=== PATIENT | male | born 1950 | race Caucasian/White ===

== ENCOUNTER 2017-06-07 13:37 | Observation (INO) ==
[2017-06-07 14:29] LABS: Basophils # 0.2 K/mcL (0.0-0.2); Basophils % 1.4 %; Eosinophils # 0.3 K/mcL (0.0-0.6); Eosinophils % 2.9 %; Hematocrit 30.2 % (37.5-50.1); Hemoglobin 9.6 g/dL (12.9-16.9); Immature Granulocytes % 0.3 % (0-4); Lymphocytes # 2.1 K/mcL (0.6-4.6); Lymphocytes % 18.4 %; Mean Corpuscular HGB Conc 31.8 g/dL (31.6-35.5); Mean Corpuscular Hemoglobin 25.6 pg (28.0-33.3); Mean Corpuscular Volume 80.5 fL (83.0-100.0); Mean Platelet Volume 8.6 fL (9.4-12.4); Monocytes # 0.9 K/mcL (0.0-1.3); Monocytes % 7.9 %; Platelet Count 690 K/mcL (140-400); Red Blood Count 3.75 M/mcL (4.19-5.50); Red Cell Distribution Width 13.2 % (11.5-14.5); Segmented Neutrophils % 69.1 %
[2017-06-07 14:34] LABS: INR 1.1; Prothrombin Time 12.2 Seconds (9.4-12.1)
[2017-06-07 14:37] LABS: Activated Partial Thrombo Time 28.7 Seconds (26.0-36.0)
--- NOTE | 2017-06-07 14:38 | Emergency Department Note ---
Disposition Clinical Impression: Renal insufficiency Lung cancer Qualifiers: Laterality: unspecified laterality Lung location: unspecified part of lung Qualified Code(s): C34.90 - Malignant neoplasm of unspecified part of unspecified bronchus or lung Disposition: Admitted As Inpatient Condition: Fair Referrals: NONE,PCP [Non-Partnered Physician] - Forms: ED Satisfaction Letter Time of Disposition: 18:57 Male Urogenital HPI - General Chief complaint: ED Urogenital-Male Stated complaint: blood in urine Time Seen by Provider: 06/07/17 13:53 Source: patient Mode of arrival: ambulatory Limitations: no limitations Nursing Notes Reviewed: Yes Vital Signs Reviewed: Yes - History of Present Illness HPI Narrative: 67-year-old male with a history of lung cancer status post pneumonectomy on the left who had a biopsy of the lesion in his right lung yesterday. He's had hematuria for the last 10 days. He states he was told he had a cyst on his kidney. States he did have a PET scan also. Pt Subjective Complaint: other (Hematuria) Onset (ago): day(s) (10) Duration: constant Severity: moderate Quality: aching Improves with: none Worsens with: none Reports: denies other symptoms - Related Data Home Medications Medication Instructions Recorded Confirmed Albuterol Sulfate [Albuterol 2 puff IH Q4HR PRN 05/31/17 05/31/17 Inhaler] Ascorbic Acid [Vitamin C] 1,000 mg PO DAILY 05/31/17 05/31/17 Aspirin Enteric Coated [Aspirin EC] 81 mg PO DAILY 05/31/17 05/31/17 Baclofen [Lioresal] 10 mg PO BID 05/31/17 05/31/17 Cholecalciferol (Vitamin D3) 1,000 unit PO [id number] 05/31/17 05/31/17 [Vitamin D3] Gabapentin [Neurontin] 600 mg PO TID 05/31/17 05/31/17 Multivitamin [One Daily Essential] 1 tab PO DAILY 05/31/17 05/31/17 Tamsulosin [Flomax] 0.4 mg PO DAILY 05/31/17 05/31/17 Allergies Allergy/AdvReac Type Severity Reaction Status Date / Time No Known Allergies Allergy Verified 05/31/17 10:26 All systems ED: reviewed and negative except as stated. Constitutional: Denies: fever, chills, weakness, weight change Eyes: Denies: eye pain, eye discharge, vision change ENT ED: Denies: ear pain, throat pain, dental pain, hearing loss, epistaxis, congestion, dysphagia Cardiovascular: Denies: chest pain, palpitations, dyspnea on exertion, edema, syncope Respiratory: Denies: cough, dyspnea, wheezes, hemoptysis, stridor Gastrointestinal: Denies: abdominal pain, nausea, vomiting, diarrhea, constipation, hematemesis, melena, hematochezia Genitourinary: Reports: hematuria. Denies: urgency, dysuria, frequency Musculoskeletal: Denies: back pain, neck pain, arthralgia, myalgia Integumentary: Denies: rash, abrasion, lesions Neurological: Denies: headache, weakness, numbness, paresthesias, confusion, abnormal gait, vertigo Psychiatric: Denies: anxiety, depression, suicidal thoughts, homicidal thoughts , auditory hallucinations, visual hallucinations Endocrine: Denies: fatigue Hematological/Lymphatic: Denies: easy bleeding, easy bruising Allergic/Immunologic: Denies: facial swelling, urticaria Past Medical History - Past Medical History Medical history: Reports: cancer, COPD, hyperlipidemia, hypertension Surgical history: Reports: herniorrhaphy Psychiatric history: Reports: no psych history - Social History Smoking Status: Former smoker Smokeless Tobacco Status: No Alcohol use: Reports: none Drug use: Reports: marijuana Physical Exam - General Limitations: no limitations General appearance: alert - Head Head exam: atraumatic, normocephalic, normal inspection - Eye Eye exam: Present: normal appearance - ENT ENT exam: normal exam, normal oropharynx, mucous membranes moist, normal external ear exam - Neck Neck exam: Present: normal inspection, full ROM, trachea midline - Chest Chest inspection: Present: normal inspection, symmetric chest wall rise - Respiratory Respiratory exam: Present: normal lung sounds bilaterally - Cardiovascular Cardiovascular exam: Present: regular rate, normal rhythm, normal heart sounds - Neurological Exam Neurological exam: Present: alert, oriented X3, normal gait - Psychiatric Psychiatric exam: Present: normal affect, normal mood - Skin Skin exam: Present: warm, dry, intact, normal color Course - Reevaluation(s) Reevaluation #1: 67-year-old male with a history of lung cancer and has hematuria and questionable lesions on his kidneys based on PET scan. Worsening renal function. Patient will be admitted for IV hydration. Time: 18:57 Vital Signs Temperature 97.9 F 06/07/17 13:45 Pulse Rate 97 06/07/17 13:45 Respiratory Rate 18 06/07/17 13:45 Blood Pressure 128/83 06/07/17 13:45 O2 Sat by Pulse Oximetry 99 06/07/17 13:45 Temperature 97.9 F 06/07/17 13:45 Pulse Rate 88 06/07/17 17:41 Respiratory Rate 16 06/07/17 17:41 Blood Pressure 168/88 06/07/17 17:41 O2 Sat by Pulse Oximetry 98 06/07/17 17:41 Oxygen Delivery Oxygen Delivery Room Air Urogenital-Male - Lab Data Result diagrams: 06/07/17 14:17 06/07/17 14:17 Lab Results 06/07/17 06/07/17 06/07/17 Range/Units 14:17 14:17 14:17 WBC 11.5 H (4.3-11.1) K/mcL RBC 3.75 L (4.19-5.50) M/mcL Hgb 9.6 L (12.9-16.9) g/dL Hct 30.2 L (37.5-50.1) % MCV 80.5 L (83.0-100.0) fL MCH 25.6 L (28.0-33.3) pg MCHC 31.8 (31.6-35.5) g/dL RDW 13.2 (11.5-14.5) % Plt Count 690 H (140-400) K/mcL MPV 8.6 L (9.4-12.4) fL Immature Gran % 0.3 (0-4) % Seg Neutrophils % 69.1 % Lymphocytes % 18.4 % Monocytes % 7.9 % Eosinophils % 2.9 % Basophils % 1.4 % Neutrophils # 8.0 (1.6-8.9) K/mcL Lymphocytes # 2.1 (0.6-4.6) K/mcL Monocytes # 0.9 (0.0-1.3) K/mcL Eosinophils # 0.3 (0.0-0.6) K/mcL Basophils # 0.2 (0.0-0.2) K/mcL PT 12.2 H (9.4-12.1) Seconds INR 1.1 APTT 28.7 (26.0-36.0) Seconds Sodium 135 L (136-145) mEq/L Potassium 3.4 L (3.5-5.1) mEq/L Chloride 97 L (98-107) mEq/L Carbon Dioxide 30 H (23-29) mEq/L BUN 20 (8-23) mg/dL Creatinine 1.87 H (0.70-1.30) mg/dL Est GFR ( Amer) 44 L (> 60) Est GFR (Non-Af Amer) 36 L (> 60) BUN/Creatinine Ratio 11 (6-26) Glucose 93 (70-105) mg/dL Calculated Osmolality 282 (280-300) Lactic Acid (0.5-2.2) mmol/L Calcium 9.7 (8.6-10.3) mg/dL Total Bilirubin 0.2 L (0.3-1.0) mg/dL Direct Bilirubin 0.0 (0.0-0.2) mg/dL Indirect Bilirubin 0.2 (0.0-1.2) mg/dL AST 14 (13-39) Units/L ALT 8 (7-52) Units/L Alkaline Phosphatase 93 (34-104) Units/L Troponin I (< 0.04) ng/mL Serum Total Protein 7.1 (6.4-8.9) g/dL Albumin 3.7 (3.5-5.7) g/dL Globulin 3.4 (2.4-3.5) g/dL Albumin/Globulin Ratio 1.1 (1.1-2.2) Amylase 55 (29-103) Units/L Lipase 24 (11-82) Units/L Urine Color (Yellow) Urine Clarity (Clear) Urine pH (5.0-8.0) pH Units Ur Specific [place] (1.010-1.025) Urine Protein (Neg-Trace) mg/dL Urine Glucose (UA) (Normal) mg/dL Urine Ketones (Negative) mg/dL Urine Blood (Negative) Urine Nitrite (Negative) Urine Bilirubin (Negative) Urine Urobilinogen (Normal) mg/dL Ur Leukocyte Esterase (Negative) Urine Microscopic RBC (0-3) per hpf Urine Microscopic WBC (0-3) per hpf Ur Squamous Epith Cells (None-Few) per lpf Urine Bacteria (None-Few) per hpf Hyaline Casts (None-Few) per lpf Ur Culture Indicated? (NO) 06/07/17 06/07/17 06/07/17 Range/Units 14:17 14:17 14:40 WBC (4.3-11.1) K/mcL RBC (4.19-5.50) M/mcL Hgb (12.9-16.9) g/dL Hct (37.5-50.1) % MCV (83.0-100.0) fL MCH (28.0-33.3) pg MCHC (31.6-35.5) g/dL RDW (11.5-14.5) % Plt Count (140-400) K/mcL MPV (9.4-12.4) fL Immature Gran % (0-4) % Seg Neutrophils % % Lymphocytes % % Monocytes % % Eosinophils % % Basophils % % Neutrophils # (1.6-8.9) K/mcL Lymphocytes # (0.6-4.6) K/mcL Monocytes # (0.0-1.3) K/mcL Eosinophils # (0.0-0.6) K/mcL Basophils # (0.0-0.2) K/mcL PT (9.4-12.1) Seconds INR APTT (26.0-36.0) Seconds Sodium (136-145) mEq/L Potassium (3.5-5.1) mEq/L Chloride (98-107) mEq/L Carbon Dioxide (23-29) mEq/L BUN (8-23) mg/dL Creatinine (0.70-1.30) mg/dL Est GFR ( Amer) (> 60) Est GFR (Non-Af Amer) (> 60) BUN/Creatinine Ratio (6-26) Glucose (70-105) mg/dL Calculated Osmolality (280-300) Lactic Acid 2.2 (0.5-2.2) mmol/L Calcium (8.6-10.3) mg/dL Total Bilirubin (0.3-1.0) mg/dL Direct Bilirubin (0.0-0.2) mg/dL Indirect Bilirubin (0.0-1.2) mg/dL AST (13-39) Units/L ALT (7-52) Units/L Alkaline Phosphatase (34-104) Units/L Troponin I < 0.03 (< 0.04) ng/mL Serum Total Protein (6.4-8.9) g/dL Albumin (3.5-5.7) g/dL Globulin (2.4-3.5) g/dL Albumin/Globulin Ratio (1.1-2.2) Amylase (29-103) Units/L Lipase (11-82) Units/L Urine Color Yellow (Yellow) Urine Clarity Clear (Clear) Urine pH 6.5 (5.0-8.0) pH Units Ur Specific [place] 1.018 (1.010-1.025) Urine Protein Negative (Neg-Trace) mg/dL Urine Glucose (UA) Normal (Normal) mg/dL Urine Ketones Negative (Negative) mg/dL Urine Blood Large H (Negative) Urine Nitrite Negative (Negative) Urine Bilirubin Negative (Negative) Urine Urobilinogen Normal (Normal) mg/dL Ur Leukocyte Esterase Small H (Negative) Urine Microscopic RBC 30-50 H (0-3) per hpf Urine Microscopic WBC 3-5 H (0-3) per hpf Ur Squamous Epith Cells Moderate H (None-Few) per lpf Urine Bacteria None Seen (None-Few) per hpf Hyaline Casts None Seen (None-Few) per lpf Ur Culture Indicated? YES A (NO) - Radiology Data Radiology results reviewed: Yes I reviewed the patient's radiology results. Abdomen/Pelvis CT 06/07/17 14:08 IMPRESSION: 1. Multiple pulmonary nodules in the right lung evidence of metastatic disease. Continued CT follow-up is recommended. 2. Left hydropneumothorax secondary to previous pneumonectomy. 3. Bilateral renal lesions cannot be characterized on the current noncontrast CT. Previous PET-CT recommended dedicated MRI or CT using a multiphase renal protocol. D/ / Madi Glass MD / Madi Glass MD Interpreting Provider: Madi Glass MD Chest X-Ray 06/07/17 18:11 IMPRESSION: 1. No residual pneumothorax demonstrated 2. No significant change in small focus of right upper lobe airspace disease compatible with a small amount of post biopsy alveolar hemorrhage. No new abnormality demonstrated D/ / Edwin Fung MD / Edwin Fung MD Interpreting Provider: Edwin Fung MD
[2017-06-07 14:49] LABS: Albumin 3.7 g/dL (3.5-5.7); Albumin/Globulin Ratio 1.1 (1.1-2.2); Bilirubin,Indirect 0.2 mg/dL (0.0-1.2); Bilirubin,Total 0.2 mg/dL (0.3-1.0); Calcium 9.7 mg/dL (8.6-10.3); Globulin 3.4 g/dL (2.4-3.5); Potassium 3.4 mEq/L (3.5-5.1); Total Protein 7.1 g/dL (6.4-8.9)
[2017-06-07 14:55] LABS: Bilirubin,Urine Negative (Negative); Blood,Urine Large (Negative); Clarity,Urine Clear (Clear); Color,Urine Yellow (Yellow); Glucose,Urine (UA) Normal (Normal); Ketones,Urine Negative (Negative); Leukocyte Esterase,Urine Small (Negative); Nitrite,Urine Negative (Negative); PH,Urine 6.5 pH Units (5.0-8.0); Protein,Urine Negative (Neg-Trace); Specific Gravity,Urine 1.018 (1.010-1.025); Urobilinogen,Urine Normal (Normal)
[2017-06-07 14:56] LABS: Bacteria,Urine None Seen per hpf (None-Few); Hyaline Casts,Urine None Seen per lpf (None-Few); RBC,Urine 30-50 per hpf (0-3); Squamous Epithelial Cell,Urine Moderate per lpf (None-Few)
[2017-06-07] MEDS ORDERED: *HR* OxyCODONE/APAP 5/325 TABLET PO ONE (18:11)
--- NOTE | 2017-06-07 21:42 | Internal Med History&Physical ---
<Simone Hayes - Last Filed: 06/08/17 00:26> Date of Encounter: 06/08/17 Time of Encounter: 09:00 Assessment and Plan (1) Hematuria Current visit: Yes Status: Acute Secondary to renal mass, suspected RCC See plan of care below Qualifiers: Hematuria type: gross Qualified Code(s): R31.0 - Gross hematuria (2) Renal mass Current visit: Yes Status: Chronic Suspicious for renal cell carcinoma on imaging Awaiting biopsy results to differentiate lung lesions as metastatic lung ca vs metastatic RCC If pathology of lung lesions is not of renal origin, further characterization of renal mass can be done with MRI w/ and w/o contrast or CT w/ and w/o renal protocol GFR at 36 is borderline for allowing contrast use, hopefully with IVF, this will improve. Management per oncology (3) Anemia Current visit: Yes Status: Acute Secondary to blood loss - recent hematuria soon after pneumonectomy 9.6 on admission, last was 10.5 on 05/31 Currently without symptoms, but significant risk of decompensation Will monitor Hgb Continuous pulse oximetry Qualifiers: Anemia type: unspecified type Qualified Code(s): D64.9 - Anemia, unspecified (4) Renal insufficiency Current visit: Yes Status: Acute Cr elevated at 1.87 compared to 1.04 on05/04/17 Gentle IV hydration at 75 mls/hr (5) Lung cancer Current visit: Yes Status: Acute Squamous cell carinoma S/P pneumonectomy has not undergone adjuvant therapy Qualifiers: Laterality: unspecified laterality Lung location: unspecified part of lung Qualified Code(s): C34.90 - Malignant neoplasm of unspecified part of unspecified bronchus or lung (6) S/P pneumonectomy Current visit: Yes Status: Chronic Left sided (7) Benign prostate hyperplasia Current visit: Yes Status: Acute No symptoms currently Qualifiers: Lower urinary tract symptom presence: symptoms absent Qualified Code(s): N40.0 - Benign prostatic hyperplasia without lower urinary tract symptoms (8) COPD (chronic obstructive pulmonary disease) Current visit: Yes Status: Acute Continue home inhaler Qualifiers: COPD type: unspecified COPD Qualified Code(s): J44.9 - Chronic obstructive pulmonary disease, unspecified (9) DVT prophylaxis Current visit: Yes Status: Acute Will avoid pharmacologic prophylaxis while actively bleeding SCDs placed Internal Medicine - H&P: HPI Chief complaint: Hematuria, Hemoptysis Admitted From: Home Plans for Post Hospital Care: Home History of present illness: Mr. Robles is a 67 year old male who presented with approximately 10 days of worsening hematuria. He states that it had started as a slight pink tinge and progressed to mario clots. He described them as "like a worm." He says that it was at it worst yesterday and had slightly improved today. He does complain of dysuria, which he attributes to having to manually remove clots. Other symptoms include right sided chest pain at the site of CT guided lung biopsy and some shortness of breath following his pneumonectomy. He denies nausea and vomiting. Patient has history of alcohol abuse, though states that he stopped drinking heavily in 2009. Admits to 50-100 pack years of smoking history, having started at age 16, stopping at 66, and smoking 1-2 PPD. The patient has a recent diagnosis of lung cancer, with workup that started after presenting to the [facility] with hemoptysis. He was treated with steroids and antibiotics. The hemoptysis recurred. 03/22/17 CTA chest at [facility]: 3.1 x 2.8 x 2.9 cm left-sided mass without adenopathy, single noncalcified nodule on right. 03/22/17 Bronchoscopy at [facility]: Obstructed mainstem bronchus. Biopsy showed moderately differentiated squamous cell carcinoma. 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 Porter. 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 Margins suspected to be negative. Lymph nodes negative for metastasis x17. 05/24/17 CT abd/pelv w/o at [facility]: >10 noncalcified pulmonary nodules in the right lung base consistent with metastasis; mass with poorly defined margins measuring at least 6 x 6 x 6 cm in the right kidney "that should be considered renal cell carcinoma until proven otherwise." 05/31/17: Patient seen [facility] by Dr. Truong. Complaining of flank pain and hematuria, as well as post-operative discomfort. Mario hematuria had remitted by this visit, but blood was detected on UA. 06/02/17 PET/CT: Increased size and number of hypermetabolic nodules in right lung ; Hypermetabolic focus along anterior margin of R main pulmonary artery possibly met vs metastatic lymph node; L posterior chest wall uptake suspicious for met; Hypodense lesions in both kidneys new or enlarged from 2017 demonstrate attenuation higher than simple cyst; Renal CT or MRI recommended. 06/06/17: CT guided core biopsy of right upper lobe peripheral pulmonary nodule by Dr. Martinez. Pathology pending. Past Med Surg Social Fam HX - Past Medical History Medical history: cancer, COPD, hyperlipidemia, hypertension Psychiatric history: no psych history - Past Surgical History Surgical History: herniorrhaphy - Social History Smoking Status: Former smoker Smokeless Tobacco Status: No Alcohol use: none Drug use: marijuana Internal Medicine - H&P: Meds Albuterol Sulfate [Albuterol Inhaler] 2 puff IH Q6H PRN 05/31/17 [History] Aspirin Enteric Coated [Aspirin EC] 81 mg PO DAILY 05/31/17 [History] Baclofen [Lioresal] 10 mg PO TID PRN 05/31/17 [History] Cholecalciferol (Vitamin D3) [Vitamin D3] 1,000 unit PO BID 05/31/17 [History] Gabapentin [Neurontin] 1,200 mg PO TID 05/31/17 [History] Multivitamin [One Daily Essential] 1 tab PO DAILY 05/31/17 [History] Tamsulosin [Flomax] 0.4 mg PO HS 05/31/17 [History] Calcium Carbonate/Vitamin D3 [Calcium 500-Vit D3 200 Tablet] 1 each PO DAILY 10/17 [History] Fluticasone Propionate Nasal [Flonase] 100 mcg NS DAILY 06/07/17 [History] Phenyleph/Chlorphen/Apap 1 tab PO AD PRN 06/07/17 [History] Varenicline Tartrate [Chantix] 1 mg PO BID 06/07/17 [History] 3 Allergy/AdvReac Type Severity Reaction Status Date / Time No Known Allergies Allergy Verified 05/31/17 10:26 All Systems PM: As per HPI - Constitutional Vitals: Temp Pulse Resp BP Pulse Ox 98.5 F 90 15 165/85 96 06/07/17 21:30 06/07/17 21:30 06/07/17 21:30 06/07/17 21:30 06/07/17 21:30 General appearance: Present: cooperative, A&O X 3, pleasant, no acute distress, answers questions appropriately - Head Head exam: Present: atraumatic, normal inspection, normocephalic - ENT ENT exam: Present: mucous membranes moist - Neck Neck exam general surgery: Present: trachea midline - Respiratory Respiratory exam: Absent: accessory muscle use, respiratory distress Additional comments: Absent breath sounds on the left Rare wheezes on right - Cardiovascular Cardiovascular exam: Present: RRR, +S1, +S2 - GI/Abdominal GI/Abdominal exam: Present: soft, no peritoneal signs Additional comments: Right sided tenderness and fullness - Extremities Exam Extremities exam: Present: radial pulses palpable and symmetrical. Absent: pedal edema - Psychiatric Psychiatric exam: Present: normal affect, normal mood. Absent: agitated, anxious - Skin Skin exam: Present: dry, warm Internal Med - H&P Results - Labs CBC & Chem 7: 06/07/17 14:17 06/07/17 14:17 <Apolinar Dodge - Last Filed: 06/08/17 01:03> Date of Encounter: 06/08/17 Internal Medicine - H&P: HPI History of present illness: Mr. Robles is a 67 year old male All Systems PM: A 10-system review of systems was performed and is negative for pertinent findings except as documented above in the HPI. - Constitutional Vitals: Temp Pulse Resp BP Pulse Ox 98.6 F 86 14 157/83 96 06/07/17 23:04 06/07/17 23:04 06/07/17 23:04 06/07/17 23:04 06/07/17 23:04 Internal Med - H&P Results - Labs CBC & Chem 7: 06/07/17 14:17 06/07/17 14:17 - Attending Attestation I have seen and examined this pt independently, I have discussed with resident physician Dr Hayes regarding the management plan. Agree with the documentation.
[2017-06-07] MEDS ORDERED: Acetaminophen 325 MG TABLET PO PRN (22:41)
[2017-06-07] MEDS ORDERED: Naloxone 0.4 MG/ML INJ IVP PRN (22:41)
[2017-06-08] MEDS: 0.9 % Sodium Chloride 1,000 ML IVC SCH ×2 (00:06→15:19)
[2017-06-08] MEDS: *HR* OxyCODONE Immed Rel 5 MG TABLET PO PRN ×4 (00:07→17:34)
[2017-06-08] MEDS ORDERED: Ondansetron 4 MG/2 ML VIAL IVP PRN (04:46)
[2017-06-08 06:27] LABS: Hematocrit 31.2 % (37.5-50.1); Hemoglobin 9.8 g/dL (12.9-16.9); Mean Corpuscular HGB Conc 31.4 g/dL (31.6-35.5); Mean Corpuscular Hemoglobin 25.5 pg (28.0-33.3); Mean Corpuscular Volume 81.3 fL (83.0-100.0); Platelet Count 723 K/mcL (140-400); Red Blood Count 3.84 M/mcL (4.19-5.50); Red Cell Distribution Width 13.3 % (11.5-14.5)
[2017-06-08 06:46] LABS: Albumin 3.5 g/dL (3.5-5.7); Bilirubin,Total 0.3 mg/dL (0.3-1.0); Calcium 9.3 mg/dL (8.6-10.3); Globulin 3.5 g/dL (2.4-3.5)
[2017-06-08] MEDS: Fluticasone Propionate Nasal 50 MCG/SPRAY BOTTLE NS SCH (08:41)
[2017-06-08] MEDS ORDERED: Aspirin Enteric Coated 81 MG Tablet PO SCH (09:00)
[2017-06-08] MEDS ORDERED: Gabapentin 400 MG CAPSULE PO SCH (09:00)
--- NOTE | 2017-06-08 11:46 | Internal Med Progress Note ---
Date of Encounter: 06/08/17 Time of Encounter: 11:42 - Assessment and plan (1) Acute kidney injury Current Visit: Yes Status: Acute Assessment and plan: possibly obstructive due to renal mass, BPH, hematuria Urine is clear at this time renal function i improving with IVF Renal USS noted for eterogenous lesions bilaterally, mild bladder wall thickening possibly due to chronic HAEZL No stones Strict I/Os Avoid nephrotoxins (2) Anemia Current Visit: Yes Status: Chronic Assessment and plan: Chronic, HB on arrival 9.6, 9.8 this am, baseline around 10 Continue to monitor Qualifiers: Anemia type: unspecified type Qualified Code(s): D64.9 - Anemia, unspecified (3) Benign prostate hyperplasia Current Visit: Yes Status: Chronic Assessment and plan: continue home medications. Qualifiers: Lower urinary tract symptom presence: symptoms absent Qualified Code(s): N40.0 - Benign prostatic hyperplasia without lower urinary tract symptoms (4) COPD (chronic obstructive pulmonary disease) Current Visit: Yes Status: Chronic Assessment and plan: no signs of exacerbation at this time. Continue home medications. Qualifiers: COPD type: unspecified COPD Qualified Code(s): J44.9 - Chronic obstructive pulmonary disease, unspecified (5) Hematuria Current Visit: Yes Status: Acute Assessment and plan: intermittent. Unwitnessed in this visit. Possibly secondary to renal cell carcinoma. Oncology evaluation is pending. Qualifiers: Hematuria type: unspecified type Qualified Code(s): R31.9 - Hematuria, unspecified (6) Lung cancer Current Visit: Yes Status: Chronic Assessment and plan: Squamous cell carinoma S/P pneumonectomy has not undergone adjuvant therapy Qualifiers: Laterality: unspecified laterality Lung location: unspecified part of lung Qualified Code(s): C34.90 - Malignant neoplasm of unspecified part of unspecified bronchus or lung (7) Renal mass Current Visit: Yes Status: Chronic Assessment and plan: Suspicious for renal cell carcinoma on imaging Awaiting biopsy results to differentiate lung lesions as metastatic lung ca vs metastatic RCC renal ultrasound noted. Management per oncology. (8) S/P pneumonectomy Current Visit: Yes Status: Chronic Assessment and plan: stable. (9) DVT prophylaxis Current Visit: Yes Status: Acute Assessment and plan: status post patient on heparin subcutaneous. No current evidence of hematuria. 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, hematuria, He has a PMH of LUng CA , renal cancer (being worked up as mets from lung, or primary), Chronic anemia At my time of evaluation, i see urine in his urinal that is clear, patient states "hematuria comes and goes" No new complains Awaiting oncology eval - Constitutional Vitals: Temp Pulse Resp BP Pulse Ox 98.7 F 95 20 155/82 95 06/08/17 11:37 06/08/17 11:37 06/08/17 11:37 06/08/17 11:37 06/08/17 11:37 General appearance: Present: cachectic, cooperative, A&O X 3, pleasant, no acute distress, answers questions appropriately - Head Head exam: Present: atraumatic, normocephalic - Eye Eye exam: Present: PERRL, conjuntiva pink, sclera anicteric Pupils: Present: PERRL - Neck Neck exam general surgery: Present: supple, trachea midline. Absent: lymphadenopathy - Respiratory Additional comments: diminished breath sounds on the L lung base, other zones CTA - Cardiovascular Cardiovascular exam: Present: RRR, +S1, +S2. Absent: diastolic murmur, gallop, rubs, systolic murmur - GI/Abdominal GI/Abdominal exam: Present: normal bowel sounds, soft, no peritoneal signs. Absent: distended, tenderness - Extremities Exam Extremities exam: Present: warm, radial pulses palpable and symmetrical. Absent : calf tenderness, cyanotic, pedal edema - Neurological Exam Neurological exam: Present: alert, CN II-XII intact, oriented X3, no focal deficits. Absent: pronater drift, facial droop, speech deficit - Skin Skin exam: Present: dry, intact Internal Medicine: Result - Labs CBC & Chem 7: 06/08/17 06:01 06/08/17 06:01 Labs: Short CBC 06/08/17 Range/Units 06:01 WBC 16.0 H (4.3-11.1) K/mcL Hgb 9.8 L (12.9-16.9) g/dL Hct 31.2 L (37.5-50.1) % Plt Count 723 H (140-400) K/mcL BMP 06/08/17 06:01 Sodium 133 L Potassium 4.0 Chloride 99 Carbon Dioxide 25 BUN 17 Creatinine 1.45 H Glucose 103 Calcium 9.3 Liver Function 06/08/17 Range/Units 06:01 Total Bilirubin 0.3 (0.3-1.0) mg/dL AST 13 (13-39) Units/L ALT 8 (7-52) Units/L Alkaline Phosphatase 88 (34-104) Units/L Albumin 3.5 (3.5-5.7) g/dL - ABG Interpretation ABG results: PT/INR, D-dimer PT 12.2 Seconds (9.4-12.1) H 06/07/17 14:17 Consult Discharge Plan - Plan Referrals: [facility] [Outside]
--- NOTE | 2017-06-08 13:00 | Oncology Inp Consult Note ---
<Parminder Truong - Last Filed: 06/08/17 18:07> Date of Encounter: 06/08/17 - Data of Consult Requesting Physician: Jose Eduardo Luo MD [facility] Provider[facility] - Consult Narrative History of present illness: Mr. Robles is a 67 year old male Medications and Allergies Albuterol Sulfate [Albuterol Inhaler] 2 puff IH Q6H PRN 05/31/17 [History] Aspirin Enteric Coated [Aspirin EC] 81 mg PO DAILY 05/31/17 [History] Baclofen [Lioresal] 10 mg PO TID PRN 05/31/17 [History] Cholecalciferol (Vitamin D3) [Vitamin D3] 1,000 unit PO BID 05/31/17 [History] Gabapentin [Neurontin] 1,200 mg PO TID 05/31/17 [History] Multivitamin [One Daily Essential] 1 tab PO DAILY 05/31/17 [History] Tamsulosin [Flomax] 0.4 mg PO HS 05/31/17 [History] Calcium Carbonate/Vitamin D3 [Calcium 500-Vit D3 200 Tablet] 1 each PO DAILY 10/17 [History] Fluticasone Propionate Nasal [Flonase] 100 mcg NS DAILY 06/07/17 [History] Phenyleph/Chlorphen/Apap 1 tab PO AD PRN 06/07/17 [History] Varenicline Tartrate [Chantix] 1 mg PO BID 06/07/17 [History] 3 Allergy/AdvReac Type Severity Reaction Status Date / Time No Known Allergies Allergy Verified 05/31/17 10:26 Oncology - Exam - Constitutional Vitals: Temp Pulse Resp BP Pulse Ox 98.5 F 94 18 155/83 95 06/08/17 17:16 06/08/17 17:16 06/08/17 17:16 06/08/17 17:16 06/08/17 17:16 Oncology - Results Labs: Short CBC 06/08/17 Range/Units 06:01 WBC 16.0 H (4.3-11.1) K/mcL Hgb 9.8 L (12.9-16.9) g/dL Hct 31.2 L (37.5-50.1) % Plt Count 723 H (140-400) K/mcL BMP 06/08/17 06:01 Sodium 133 L Potassium 4.0 Chloride 99 Carbon Dioxide 25 BUN 17 Creatinine 1.45 H Glucose 103 Calcium 9.3 Liver Function 06/08/17 Range/Units 06:01 Total Bilirubin 0.3 (0.3-1.0) mg/dL AST 13 (13-39) Units/L ALT 8 (7-52) Units/L Alkaline Phosphatase 88 (34-104) Units/L Albumin 3.5 (3.5-5.7) g/dL Consult Discharge Plan - Plan Referrals: [facility] [Outside] - 06/16/17 3:00 pm Parminder Truong MD [Partnered Physician] - 06/10/17 11:45 am (Treatment will be after the appt. Thank you) - Attending Attestation I have seen and examined her, and agree with Ms. chacon's assessment. 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 He is status post left pneumonectomy in April and in the 6 weeks post op has developed extensive right-sided lung metastases as well as bilateral renal metastases from his lung cancer. Outside of an isolated 5mm right lung nodule and a 1 cm indeterminate right renal lesion, these were absent on preoperative CT and PET/CT imaging He contacted our office with gross hematuria and clot hematuria on Tuesday. I touched base with our urology team who recommended an ER visit and consideration of catheter placement with irrigation if his hematuria persisted. I am happy to report his hematuria has resolved and not recurred during his hospital stay. I did inform Mr. Robles of his biopsy results today. I also informed him of the grave situation we are in given the aggressive nature of his cancer. If possible, I would like him discharged if deemed stable tomorrow so I can initiate chemotherapy on Tuesday. We discussed using carboplatin with Abraxane for his squamous cell carcinoma. We discussed this therapy in generalities and we will discuss this in more detail prior to initiation of therapy. I asked him to bring family with him to his next visit as well. Patient does wish to be DNR which I wholeheartedly agree with. If you have any concerns or questions, do not hesitate to call my cell phone at [phone] <Sylwia Chacon L - Last Filed: 06/09/17 12:31> Date of Encounter: 06/08/17 Time of Encounter: 12:30 Assessment and Plan (1) Lung cancer Status: Chronic Assessment and plan: Given recent work up findings as described in detail in HPI, Mr. Robles has a very unfortunate case of highly aggressive metastatic squamous cell carcinoma of the lung. Since his pneumonectomy he has developed extensive right-sided lung metastases as well as bilateral renal metastases from his lung cancer. He was sent to ER for further evaluation of gross hematuria with clots. Dr. Truong has been in contact with our urology team who will continue to follow patient on an outpatient basis. His hematuria has since resolved during his hospital stay. Dr. Truong did have a conversation with Mr. Robles today informing him of his biopsy results and the grave situation given the aggressiveness of his lung cancer. He stressed the need to start chemotherapy treatment very soon, planned treatment to be carboplatin and abraxane. The general idea of chemotherapy, what to expect and common side effects were introduced at this visit, however, given the lengthy discussion regarding the patients disease progression, chemotherapy treatment details will be further explained at upcoming follow up appointment this week. It patient is stable enough for discharge tomorrow per hospitalist team, he will then follow up with Dr. Truong Tuesday morning and start chemotherapy this day. Patient lives with his brother and is fairly independent. He was asked to bring family support with him at his upcoming appointment. I spoke with Dr. Luo regarding plan as outlined above, she is planning to discharge patient tomorrow if he is medically stable and MARS is stable or improving. Please refer to Dr. Truong's attestation below for further details. Qualifiers: Laterality: unspecified laterality Lung location: unspecified part of lung Qualified Code(s): C34.90 - Malignant neoplasm of unspecified part of unspecified bronchus or lung - Data of Consult Patient: known to practice within the last 3 years Consult date: 06/08/17 Requesting Physician: Jose Eduardo Luo MD [facility] Provider[facility] - Consult Narrative Reason for consult: Left lung squamous carcinoma, renal mass History of present illness: Mr. 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 The tumor was located in the left mainstem bronchus. He is status post left muscle-sparing thoracotomy with pneumonectomy and lymphadenectomy 04/2017. Per the pathology report, there may be a positive soft tissue margin at the mainstem bronchus although per patient recall, this margin is felt to be negative. He also has a rapidly enlarging right renal mass. This lesion measured 1.3 cm 03/23/2017 and now measures [address] 05/24/2017. He is having right flank pain and hematuria. He has multiple new pulmonary nodules in the right lung measuring up to 14 mm by imaging 05/24/2017. He was originally planned to discuss adjuvant strategies following his resected lung cancer when meeting Dr. Truong on 05/31/2017, however, in light of the CT images as described, he was sent for further workup for concern of another metastatic process thus putting discussion for his adjuvant treatment on hold. He underwent PET/CT on 06/02/2017 that shows increase in number and size of hypermetabolic nodules throughout the right lung consistent with progression of metastatic disease. A hypermetabolic focus on the anterior margin of the right main pulmonary artery which could represent additional pulmonary metastasis or metastatic lymph node, focal intense uptake along the left posterior chest wall between the sixth and seventh ribs suspicious for metastatic disease, hypodense lesions in both kidneys are new or have enlarged and demonstrate attenuation slightly higher than simple cysts. He then underwent CT-guided core needle biopsy of the right lung on 06/06/2017. Surgical path shows moderately differentiated squamous cell carcinoma. CT Abd/Pelvis on 06/07/17 shows again multiple pulmonary nodules in the right lung evidence of metastatic and now bilateral renal lesions which cannot be characterized on the current noncontrast scan. Mr. Robles presented to the ER on 06/07/2017 with complaints of worsening hematuria. He has had intermittent hematuria over the past couple of weeks however this weekend he began urinating mario, dark red urine with quite significant clots. He was admitted with hematuria, renal insufficiency, renal mass and anemia. Past Med Surg Social Fam HX - Past Medical History Medical history: cancer, COPD, hyperlipidemia, hypertension Psychiatric history: no psych history - Past Surgical History Surgical History: herniorrhaphy - Social History Smoking Status: Former smoker Smokeless Tobacco Status: No Alcohol use: none Drug use: marijuana - Family History Mother Living Status: Still Living Father Living Status: Age at : 71 Cause of : lung cancer Constitutional: Present: fatigue, weakness, weight loss. Absent: fever(s) Additional comments: decreased appetite, resultant weight loss of about 10 pounds over past month Eyes: Absent: blurry vision Cardiovascular: Absent: chest pain, irregular heart rhythm, palpitations Respiratory: Present: hemoptysis, dyspnea on exertion Additional comments: reports hemoptysis that occurred once yesterday and once last week, described as mucous with dark red bloody streaks Gastrointestinal: Absent: hematemesis, hematochezia, melena, nausea, vomiting Additional comments: He reports mid lower abdominal pain in area of bladder Genitourinary: as per HPI Additional comments: reports hematuria per HPI, denies dysuria, urinary frequency or urgency. Musculoskeletal: Absent: arthralgias Integumentary: Absent: wounds Neurological: Absent: focal weakness, headache(s), loss of vision, numbness, syncope, tingling Psychiatric: Present: change in appetite Hematologic/Lymphatic: Present: as per HPI. Absent: lymphadenopathy Oncology - Exam - Constitutional Vitals: Temp Pulse Resp BP Pulse Ox 98.7 F 95 20 155/82 95 06/08/17 11:37 06/08/17 11:37 06/08/17 11:37 06/08/17 11:37 06/08/17 11:37 General appearance: cooperative, no acute distress, thin, no febrile Exam: chronically ill, thin appearing - Head Head exam: Present: atraumatic - ENT ENT exam: Present: mucous membranes moist - Respiratory Additional comments: Left LS Diminished, R LS CTA - Cardiovascular Cardiovascular exam: Present: RRR, +S1, +S2 - GI/Abdominal GI/Abdominal exam: Present: normal bowel sounds, soft. Absent: tenderness - Extremities Exam Extremities exam: Present: normal inspection. Absent: calf tenderness - Back Exam Additional comments: right flank pain/tenderness - Neurological Exam Neurological exam: Present: alert, oriented X3, no focal deficits, strengths equal and symetr throughout - Psychiatric Psychiatric exam: Present: normal affect, normal mood - Skin Skin exam: Present: normal color, warm Oncology - Results Labs: Short CBC 06/08/17 Range/Units 06:01 WBC 16.0 H (4.3-11.1) K/mcL Hgb 9.8 L (12.9-16.9) g/dL Hct 31.2 L (37.5-50.1) % Plt Count 723 H (140-400) K/mcL BMP 06/08/17 06:01 Sodium 133 L Potassium 4.0 Chloride 99 Carbon Dioxide 25 BUN 17 Creatinine 1.45 H Glucose 103 Calcium 9.3 Liver Function 06/08/17 Range/Units 06:01 Total Bilirubin 0.3 (0.3-1.0) mg/dL AST 13 (13-39) Units/L ALT 8 (7-52) Units/L Alkaline Phosphatase 88 (34-104) Units/L Albumin 3.5 (3.5-5.7) g/dL
[2017-06-08] MEDS: Gabapentin 400 MG CAPSULE PO SCH ×2 (15:21→19:49)
[2017-06-09] MEDS: *HR* OxyCODONE Immed Rel 5 MG TABLET PO PRN ×2 (04:04→10:36)
[2017-06-09 08:30] LABS: Basophils # 0.2 K/mcL (0.0-0.2); Basophils % 1.1 %; Eosinophils # 0.4 K/mcL (0.0-0.6); Eosinophils % 2.4 %; Hematocrit 32.9 % (37.5-50.1); Hemoglobin 10.3 g/dL (12.9-16.9); Immature Granulocytes % 0.3 % (0-4); Lymphocytes # 2.5 K/mcL (0.6-4.6); Mean Corpuscular HGB Conc 31.3 g/dL (31.6-35.5); Mean Corpuscular Hemoglobin 25.8 pg (28.0-33.3); Mean Corpuscular Volume 82.3 fL (83.0-100.0); Mean Platelet Volume 8.9 fL (9.4-12.4); Monocytes # 1.3 K/mcL (0.0-1.3); Monocytes % 8.2 %; Neutrophils # 11.1 K/mcL (1.6-8.9); Platelet Count 756 K/mcL (140-400); Red Cell Distribution Width 13.4 % (11.5-14.5)
[2017-06-09 08:45] LABS: BUN/Creatinine Ratio 12 (6-26); Blood Urea Nitrogen 16 mg/dL (8-23); Calcium 9.4 mg/dL (8.6-10.3); Carbon Dioxide 26 mEq/L (23-29); Chloride 98 mEq/L (98-107); Glucose 117 mg/dL (70-105); Osmolality,Calculated 274 (280-300); Potassium 4.2 mEq/L (3.5-5.1); Sodium 131 mEq/L (136-145); eGFR For African Americans > 60 (> 60); eGFR For Non-African Americans 52 (> 60)
--- NOTE | 2017-06-09 09:32 | Discharge Summary ---
<Lulú Contreras - Last Filed: 06/09/17 13:07> Date of Encounter: 06/09/17 Time of Encounter: 09:20 - Discharge Diagnosis (1) Acute kidney injury Priority: Primary Status: Acute (2) S/P pneumonectomy Priority: Secondary Status: Chronic (3) Anemia Priority: Secondary Status: Chronic Qualifiers: Anemia type: unspecified type Qualified Code(s): D64.9 - Anemia, unspecified (4) Hematuria Priority: Secondary Status: Acute Qualifiers: Hematuria type: unspecified type Qualified Code(s): R31.9 - Hematuria, unspecified (5) Lung cancer Priority: Secondary Status: Chronic Qualifiers: Laterality: unspecified laterality Lung location: unspecified part of lung Qualified Code(s): C34.90 - Malignant neoplasm of unspecified part of unspecified bronchus or lung (6) Renal mass Priority: Secondary Status: Chronic (7) Benign prostate hyperplasia Priority: Secondary Status: Chronic Qualifiers: Lower urinary tract symptom presence: symptoms absent Qualified Code(s): N40.0 - Benign prostatic hyperplasia without lower urinary tract symptoms (8) COPD (chronic obstructive pulmonary disease) Priority: Secondary Status: Chronic Qualifiers: COPD type: unspecified COPD Qualified Code(s): J44.9 - Chronic obstructive pulmonary disease, unspecified (9) DVT prophylaxis Priority: Secondary Status: Acute - Discharge Medications Prescriptions: OxyCODONE/APAP 5/325 [Percocet 5/325 MG] 1 each PO Q6HR PRN 5 Days #20 tablet PRN Reason: Pain Home Medications: Albuterol Sulfate [Albuterol Inhaler] 2 puff IH Q6H PRN 05/31/17 [History] Aspirin Enteric Coated [Aspirin EC] 81 mg PO DAILY 05/31/17 [History] Baclofen [Lioresal] 10 mg PO TID PRN 05/31/17 [History] Cholecalciferol (Vitamin D3) [Vitamin D3] 1,000 unit PO BID 05/31/17 [History] Gabapentin [Neurontin] 1,200 mg PO TID 05/31/17 [History] Multivitamin [One Daily Essential] 1 tab PO DAILY 05/31/17 [History] Tamsulosin [Flomax] 0.4 mg PO HS 05/31/17 [History] Calcium Carbonate/Vitamin D3 [Calcium 500-Vit D3 200 Tablet] 1 each PO DAILY 10/17 [History] Fluticasone Propionate Nasal [Flonase] 100 mcg NS DAILY 06/07/17 [History] Phenyleph/Chlorphen/Apap 1 tab PO AD PRN 06/07/17 [History] Varenicline Tartrate [Chantix] 1 mg PO BID 06/07/17 [History] OxyCODONE/APAP 5/325 [Percocet 5/325 MG] 1 each PO Q6HR PRN 5 Days #20 tablet [Rx] Allergies/Adverse Reactions: 3 Allergy/AdvReac Type Severity Reaction Status Date / Time No Known Allergies Allergy Verified 05/31/17 10:26 Procedures/tests Complete & Pending: Procedures Performed prior 72 hours Category Date Time Status Retroperitoneal Ultrasound - Complete [US Exams 06/08/17 10:30 Completed retroperitoneal comp] [US] Routine Date of admission: 06/07/17 19:18 Primary care physician: [facility]CP [facility] Discharging clinician: Jose Eduardo Luo Anticipated date of discharge: 06/09/17 - Patient Status Disposition: Home, Self-Care Condition: Fair Functional capacity at discharge: independent ambulation Overall status at discharge: patient is back to baseline - Discharge Instructions Follow Up With: [facility] [Outside] - 06/16/17 3:00 pm Parminder Truong MD [Partnered Physician] - 06/10/17 11:45 am (Treatment will be after the appt. Thank you) Additional Instructions: Goes here by appointment tomorrow with oncology for chemotherapy. Return the hospital should you develop fever, chills, increase in urinary blood clots. - Diet and Activity Activity: resume usual activities as tolerated Diet: advance to your usual diet Hospital course: Mr. Robles is a 67 year old male who presented with approximately 10 days of worsening hematuria. He states that it had started as a slight pink tinge and progressed to shane clots. He described them as "like a worm." He says that it was at it worst yesterday and had slightly improved today. He does complain of dysuria, which he attributes to having to manually remove clots. Other symptoms include right sided chest pain at the site of CT guided lung biopsy and some shortness of breath following his pneumonectomy. He denies nausea and vomiting. Patient has history of alcohol abuse, though states that he stopped drinking heavily in 2009. Admits to 50-100 pack years of smoking history, having started at age 16, stopping at 66, and smoking 1-2 PPD. The patient has a recent diagnosis of lung cancer, with workup that started after presenting to the [facility] with hemoptysis. He was treated with steroids and antibiotics. The hemoptysis recurred. 03/22/17 CTA chest at [facility]: 3.1 x 2.8 x 2.9 cm left-sided mass without adenopathy, single noncalcified nodule on right. 03/22/17 Bronchoscopy at [facility]: Obstructed mainstem bronchus. Biopsy showed moderately differentiated squamous cell carcinoma. 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 Porter. 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 Margins suspected to be negative. Lymph nodes negative for metastasis x17. 05/24/17 CT abd/pelv w/o at [facility]: >10 noncalcified pulmonary nodules in the right lung base consistent with metastasis; mass with poorly defined margins measuring at least 6 x 6 x 6 cm in the right kidney "that should be considered renal cell carcinoma until proven otherwise." 05/31/17: Patient [facility] by Dr. Truong. Complaining of flank pain and hematuria, as well as post-operative discomfort. Shane hematuria had remitted by this visit, but blood was detected on UA. 06/02/17 PET/CT: Increased size and number of hypermetabolic nodules in right lung ; Hypermetabolic focus along anterior margin of R main pulmonary artery possibly met vs metastatic lymph node; L posterior chest wall uptake suspicious for met; Hypodense lesions in both kidneys new or enlarged from 2017 demonstrate attenuation higher than simple cyst; Renal CT or MRI recommended. 06/06/17: CT guided core biopsy of right upper lobe peripheral pulmonary nodule by Dr. Martinez. Pathology pending. Upon his admission oncology had been consulted and had seen the patient. Their recommendations were to stabilize the patient and then once stabilized discharge so that the patient on Tuesday could begin chemotherapy. The patient reported that hematuria had improved during the stay however upon admission he had a little hematuria but no blood clots. He stated that he normally does have hematuria every few days and this was his baseline. His MARS continued to improve. Hemoglobin remains stable. The patient denied fever, chills, abdominal pain, blood clots and urine. It was instructed to go to his appointment tomorrow with oncology for chemotherapy. He was alert and oriented times 3 with full capacity stated clear understanding of the treatment plan. - Time Spent with Patient Total time spent providing and/or coordinating discharge services: Greater than 30 minutes - Constitutional Vitals: Temp Pulse Resp BP Pulse Ox 98.4 F 100 20 145/81 97 06/09/17 08:52 06/09/17 08:52 06/09/17 08:52 06/09/17 08:52 06/09/17 08:52 General appearance: Present: cachectic, cooperative, A&O X 3, pleasant, no acute distress, answers questions appropriately Exam: Gen.: Vitals noted. No acute distress. AAOx3 HEENT: oropharynx clear, Normocephalic, atraumatic Cardiac: RRR, no murmur, +S1/S2 Pulmonary: decreased breath sounds in left lower lobe, no wheezes, rales or rhonchi, equal chest expansion Abdomen: soft, nontender, Bowel sounds noted, no guarding MSK: , no joint swelling noted Extremities: no BLE edema, nontender calf, no cyanosis or clubbing Neuro: A&Ox3, moves all extremities, no focal deficits Psych: Appropriate mood and behavior <Jose Eduardo Luo - Last Filed: 06/09/17 15:39> Date of Encounter: 06/09/17 - Discharge Diagnosis (1) Acute kidney injury Status: Acute (2) Anemia Status: Chronic Qualifiers: Anemia type: unspecified type Qualified Code(s): D64.9 - Anemia, unspecified (3) Benign prostate hyperplasia Status: Chronic Qualifiers: Lower urinary tract symptom presence: symptoms absent Qualified Code(s): N40.0 - Benign prostatic hyperplasia without lower urinary tract symptoms (4) COPD (chronic obstructive pulmonary disease) Status: Chronic Qualifiers: COPD type: unspecified COPD Qualified Code(s): J44.9 - Chronic obstructive pulmonary disease, unspecified (5) Hematuria Status: Acute Qualifiers: Hematuria type: unspecified type Qualified Code(s): R31.9 - Hematuria, unspecified (6) Lung cancer Status: Chronic Qualifiers: Laterality: unspecified laterality Lung location: unspecified part of lung Qualified Code(s): C34.90 - Malignant neoplasm of unspecified part of unspecified bronchus or lung (7) Renal mass Status: Chronic (8) S/P pneumonectomy Status: Chronic (9) DVT prophylaxis Status: Acute Procedures/tests Complete & Pending: Procedures Performed prior 72 hours Category Date Time Status Retroperitoneal Ultrasound - Complete [US Exams 06/08/17 10:30 Completed retroperitoneal comp] [US] Routine Date of admission: 06/07/17 19:18 Primary care physician: PCP [facility] Hospital course: Mr. Robles is a 67 year old male - Time Spent with Patient Total time spent providing and/or coordinating discharge services: - Constitutional Vitals: Temp Pulse Resp BP Pulse Ox 99.2 F 93 20 159/85 96 06/09/17 11:16 06/09/17 11:16 06/09/17 11:16 06/09/17 11:16 06/09/17 11:16 - Attending Attestation I examined this patient and my medical decision-making was reviewed with the Resident Physician. I agree with the documented findings, disposition and treatment plan as described except to the extent set forth below. Seen and examined at bedside Hematuria is intermittent, due to renal cell carcinoma, MARS has resolved. Stable to be discharged home to follow with oncology Rest of details as in the resident physician's documentation
[2017-06-09] MEDS: Gabapentin 400 MG CAPSULE PO SCH (09:49)
[2017-06-09] MEDS: Fluticasone Propionate Nasal 50 MCG/SPRAY BOTTLE NS SCH (09:49)
[2017-06-09 11:17] VITALS: BP 159/85
--- NOTE | 2017-06-09 13:17 | Physician Discharge Referral ---
Home Health/Hosp Referral Info Transfer to: Home Health Provider in Charge Post Discharge: PCP - Diagnosis (1) Acute kidney injury Status: Acute (2) S/P pneumonectomy Status: Chronic (3) Anemia Status: Chronic (4) Hematuria Status: Acute (5) Lung cancer Status: Chronic (6) Renal mass Status: Chronic (7) Benign prostate hyperplasia Status: Chronic (8) COPD (chronic obstructive pulmonary disease) Status: Chronic (9) DVT prophylaxis Status: Acute - Respiratory Orders None Smoking Cessation: Smoking cessation has been advised. For more information, call the [place] Tobacco Quit Line at 1-583-KKDN-NOW. - Diet/Nutrition Diet/Nutrition Orders: Regular - Activity Activity Orders: Ambulate - Services Needed Following services are medically necessary services: Nursing - Transfer Medications Home Medications: Albuterol Sulfate [Albuterol Inhaler] 2 puff IH Q6H PRN 05/31/17 [History] Aspirin Enteric Coated [Aspirin EC] 81 mg PO DAILY 05/31/17 [History] Baclofen [Lioresal] 10 mg PO TID PRN 05/31/17 [History] Cholecalciferol (Vitamin D3) [Vitamin D3] 1,000 unit PO BID 05/31/17 [History] Gabapentin [Neurontin] 1,200 mg PO TID 05/31/17 [History] Multivitamin [One Daily Essential] 1 tab PO DAILY 05/31/17 [History] Tamsulosin [Flomax] 0.4 mg PO HS 05/31/17 [History] Calcium Carbonate/Vitamin D3 [Calcium 500-Vit D3 200 Tablet] 1 each PO DAILY 10/17 [History] Fluticasone Propionate Nasal [Flonase] 100 mcg NS DAILY 06/07/17 [History] Phenyleph/Chlorphen/Apap 1 tab PO AD PRN 06/07/17 [History] Varenicline Tartrate [Chantix] 1 mg PO BID 06/07/17 [History] Allergies/Adverse Reactions: 3 Allergy/AdvReac Type Severity Reaction Status Date / Time No Known Allergies Allergy Verified 05/31/17 10:26 Certification: Further, I certify that my clinical findings support that this patient is homebound (i.e. absences from home require considerable and taxing effort and are for medical reasons or [employer] services or infrequently or short duration when for other reasons) because: current lung cancer and renal cancer Homebound Reason: Leaving home requires considerable and taxing effort due to condition Attestation: My signature below is to certify that this patient is under my care and that I, or nurse practitioner, or a physician's wellness assistant working with me, has a face-to -face encounter with this patient. Dr. Contreras
== END 2017-06-09 14:15 | disposition home or self-care (01) ==
LOC: 3ANU 13:37 → EMEROO 13:37 → 3ANU 20:22
PROVIDERS: ADMIT Internal Medicine; ATTEND Internal Medicine